=== PATIENT | female | born 1950 | race Caucasian/White ===

== ENCOUNTER → 2020-08-29 | Outpatient (CLI) | payer OTHER ==
[~2020-08-29] MED LIST: CYCLOBENZAPRINE10 MG PO
== END ==
LOC: MAMO 09:30
DX: Z12.31 Encounter for screening mammogram for malignant neoplasm of breast (principal); M85.80 Other specified disorders of bone density and structure, unspecified site; M81.0 Age-related osteoporosis without current pathological fracture; M85.862 Other specified disorders of bone density and structure, left lower leg
CPT/HCPCS: 77063; 77067; 77080

== ENCOUNTER → 2020-09-08 | Outpatient (CLI) | payer OTHER | LOC: SLEEP 12:21 | DX: G47.30 Sleep apnea, unspecified (principal) | CPT/HCPCS: 95811 ==